=== PATIENT | male | born 1980 | race American Indian/Alaskan Native ===

== ENCOUNTER 2021-11-01 15:57 | Emergency (ER) | payer SELFPAY ==
--- NOTE | 2021-11-01 16:51 | Event Note ---
ED Screening Note ED Screening Note: 40-year-old male presenting with chest pain palpitations which began last night. Patient reports symptoms improving but "still concerned". No history of prior cardiac disease or illnesses, no history of PEs or DVTs. Tobacco smoker no drug use. 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 In the setting of a significantly high volume and record number of patients presenting to the emergency department and the fact that we have a limited space to see patients we have implemented the provider in triage protocol this allows an expedited initial exam of patients that might otherwise have left without being seen or who would wait longer than usual to be seen by provider. I interviewed the patient and performed a limited physical exam. This patient is a pulled from the waiting room to triage room for an initial assessment of adrenal studies and then returned to the waiting room pending results of the studies. The ultimate final evaluation and disposition may be performed by another provider depending on room and provider availability.
[2021-11-02 04:58] LABS: Basophils % (Auto) 0.6 % (0.0-1.8); Eosinophils # (Auto) 0.1 K/mm3 (0.0-0.4); Eosinophils % (Auto) 1.6 % (0.0-4.3); Hematocrit 40.3 % (35.5-45.6); Hemoglobin 13.8 gm/dl (11.8-15.2); Lymphocytes % (Auto) 29.7 % (13.4-35.0); Mean Corpuscular HGB Conc 34 % (32-34); Mean Corpuscular Volume 92 fl (84-94); Monocytes # (Auto) 0.7 K/mm3 (0.0-0.8); Monocytes % (Auto) 9.9 % (0.0-7.3); Platelet Count 224 K/mm3 (140-440); Red Blood Count 4.37 M/mm3 (3.65-5.03); Red Cell Distribution Width 14.1 % (13.2-15.2)
--- NOTE | 2021-11-02 05:07 | XRay Report ---
CHEST 2 VIEWS INDICATION / CLINICAL INFORMATION: Chest Pain. COMPARISON: None available. FINDINGS: SUPPORT DEVICES: None. HEART / MEDIASTINUM: Heart size and mediastinal contour appear within normal limits. LUNGS / PLEURA: No significant pulmonary or pleural abnormality. No pneumothorax. BONES: S-shaped scoliotic deformity of the thoracolumbar spine. The upper apex to the left at T4-5 in terspace. The lower apex to the right at T12. ADDITIONAL FINDINGS: No significant additional findings. IMPRESSION: 1. No active cardiopulmonary disease. Signer Name: Adonay Obrien II, MD Signed: 11/02/2021 5:02 AM Workstation Name: [id number]
[2021-11-02 05:16] LABS: BUN/Creatinine Ratio 13; Blood Urea Nitrogen 16 mg/dL (9-20); Calcium 9.7 mg/dL (8.4-10.2); Hemolysis Index 22
--- NOTE | 2021-11-02 05:32 | Emergency Department Report ---
ED General Adult HPI - General Chief complaint: Chest Pain Stated complaint: CHEST TIGHT/HEART RATE ELEVATED Time Seen by Provider: 11/02/21 04:21 Source: patient Mode of arrival: Ambulatory Limitations: No Limitations - History of Present Illness Initial comments: 40-year-old male presents emerged department complaining of having some palpitations in the chest after drinking an increased amount of red bull while at work Friday night. He states that he had to leave work due to the feeling and went home to rest it off. After waking up symptoms were resolved but he was wondering what took place so he decided come to the emergency department to get checked out at the pain symptoms had medicated. Reports having occasional palpitations and occasional chest pressures but reports no fever, chills, sweats. Hemoptysis symptoms hematochezia, no nausea, no vomiting Radiation: non-radiation Quality: dull Consistency: constant Improves with: none Worsens with: none Associated Symptoms: denies: cough, diaphoresis, loss of appetite, malaise, nausea/vomiting, shortness of breath, syncope, weakness Treatments Prior to Arrival: none - Related Data Allergies Allergy/AdvReac Type Severity Reaction Status Date / Time No Known Allergies Allergy Unverified 11/01/21 16:35 ED Review of Systems ROS: Stated complaint: CHEST TIGHT/HEART RATE ELEVATED Other details as noted in HPI Comment: All other systems reviewed and negative ED Past Medical Hx - Past Medical History Previous Medical History?: No - Surgical History Past Surgical History?: No - Social History Smoking Status: Never Smoker ED Physical Exam - General Limitations: No Limitations General appearance: alert, in no apparent distress - Head Head exam: Present: atraumatic, normocephalic - Eye Eye exam: Present: normal appearance, PERRL, EOMI Pupils: Present: normal accommodation - ENT ENT exam: Present: normal exam, normal orophraynx, mucous membranes moist, TM's normal bilaterally - Neck Neck exam: Present: normal inspection, full ROM - Respiratory Respiratory exam: Present: normal lung sounds bilaterally. Absent: respiratory distress - Cardiovascular Cardiovascular Exam: Present: regular rate, normal rhythm. Absent: systolic murmur, diastolic murmur, rubs, gallop - GI/Abdominal GI/Abdominal exam: Present: soft, normal bowel sounds - Rectal Rectal exam: Present: deferred - Extremities Exam Extremities exam: Present: normal inspection, normal capillary refill - Back Exam Back exam: Present: normal inspection. Absent: CVA tenderness (R), CVA tenderness (L) - Neurological Exam Neurological exam: Present: alert, oriented X3, CN II-XII intact, normal gait - Psychiatric Psychiatric exam: Present: normal affect, normal mood - Skin Skin exam: Present: warm, dry, intact, normal color. Absent: rash ED Course Vital Signs 11/01/21 16:43 Temperature 97.3 F L Pulse Rate 63 Respiratory 18 Rate Blood Pressure 95/50 O2 Sat by Pulse 97 Oximetry ED Medical Decision Making - Lab Data Result diagrams: 11/02/21 04:48 11/02/21 04:48 - EKG Data EKG shows normal: sinus rhythm Rate: normal - EKG Data When compared to previous EKG there are: no significant change Interpretation: no acute changes (From earlier age EKG today. EKG was repeated because he stated he was having some discomfort that was not present on the first EKG), normal EKG - Radiology Data Radiology results: report reviewed [address] [address] XRay Report Signed Patient: MANGO JUNG MR#: [id number] : 1980 Acct:[id number] Age/Sex: 40 / M ADM Date: 11/01/21 Loc: ED Attending Dr: Ordering Physician: RACHEAL LEUNG Date of Service: 11/02/21 Procedure(s): XR chest routine 2V Accession Number(s): [id number] cc: RACHEAL LEUNG Fluoro Time In Minutes: CHEST 2 VIEWS INDICATION / CLINICAL INFORMATION: Chest Pain. COMPARISON: None available. FINDINGS: SUPPORT DEVICES: None. HEART / MEDIASTINUM: Heart size and mediastinal contour appear within normal limits. LUNGS / PLEURA: No significant pulmonary or pleural abnormality. No pneumothorax. BONES: S-shaped scoliotic deformity of the thoracolumbar spine. The upper apex to the left at T4-5 interspace. The lower apex to the right at T12. ADDITIONAL FINDINGS: No significant additional findings. IMPRESSION: 1. No active cardiopulmonary disease. Signer Name: Katherine Obrien II, MD Signed: 11/02/2021 5:02 AM Workstation Name: [id number] Transcribed By: MILA Dictated By: KATHERINE OBRIEN II, MD Electronically Authenticated By: KATHERINE OBRIEN II, MD Signed Date/Time: 11/02/21501 DD/ 1 TD/TT: Print Critical care attestation.: If time is entered above; I have spent that time in minutes in the direct care of this critically ill patient, excluding procedure time. ED Disposition Clinical Impression: Heart palpitations Disposition: HOME / SELF CARE / HOMELESS Is pt being admited?: No Does the pt Need Aspirin: No Condition: Stable Instructions: Palpitations Additional Instructions: You were evaluated emergency department today for chest pain. Your evaluation has shown no medicals conditions requiring emergent intervention at this time, however recommend that you follow-up with your primary care physician or your health science instructor soon as possible for further testing as an outpatient. Please schedule an appointment for follow-up with your primary care physician as soon as possible. Return to emergency department if you expands worsening uncontrolled chest pain, shortness of breath, lightheadedness, feeling faint, nausea, vomiting or any other concerning symptoms. Referrals: PRIMARY MD TRISHA [Primary Care Provider] - 3-5 Days
[2021-11-02 05:59] VITALS: BP 110/75
--- NOTE | 2021-11-02 11:18 | Electrocardiograph Report ---
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
--- NOTE | 2021-11-02 11:19 | Electrocardiograph Report ---
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
== END 2021-11-02 05:59 | disposition home or self-care (01) ==
LOC: ED 15:57
DX: R00.2 Palpitations (principal)
CPT/HCPCS: 36415; 71046; 80048; 84484; 85025; 93005; 99284